=== PATIENT | male | born 1985 | race African-American/Black ===

== ENCOUNTER 2017-11-28 04:12 | Emergency (ER) | payer MEDICAID ==
[~2017-11-28] VITALS: Ht 182.9 cm; Wt 97.0 kg
[2017-11-28] MEDS ORDERED: KETOROLAC 60MG/2ML VIAL IM ONE (07:00)
[2017-11-28 07:40] VITALS: BP 121/74
== END 2017-11-28 08:10 | disposition home or self-care (01) ==
LOC: ER 04:12
DX: K04.7 Periapical abscess without sinus (principal); F17.200 Nicotine dependence, unspecified, uncomplicated; Z98.890 Other specified postprocedural states
CPT/HCPCS: 96372; 99283; J1885; Z7610